=== PATIENT | female | born 2000 | race Hispanic/Latino ===

== ENCOUNTER 2024-07-09 17:34 | Emergency (ER) | payer SELFPAY ==
--- OUTSIDE RECORDS SUMMARY | 2024-07-09 17:36 | XMS REPORT | Continuity of Care Document ---
Author Name Unknown Address [address] [place] [address] [address] [place], [place] [address] [place] [address] Address [address] [facility]. [address] [place] [address] Care Team Providers Care Store Shopper Name Role Phone Unavailable Unavailable Unavailable Payers Payer Name Policy Type Policy Number Effective Date Expirati on Date Source [employer] [id number] 2023 00:00:00 Encounters Start Date/Time End Date/Time Encounter Type Admission Type Attending [facility] Facility Care Department Encounter ID Source 2023-12-17 13:47:32 2023-12-17 14:09:51 Outpatient Elective [facility]OUT MHEOUT [id number] MHEOUT
[2024-07-09] MEDS ORDERED: MORPHINE 4 MG/ML SYR ONE (18:14)
[2024-07-09] MEDS ORDERED: ONDANSETRON 4 MG/2 ML VIAL ONE (18:14)
[2024-07-09] MEDS ORDERED: NA CHLORIDE 0.9% 1,000 ML ONE (18:15)
[2024-07-09 18:42] LABS: Absolute Eosinophils 0.1 K/uL (0-0.5); Absolute Lymphocytes (CBC) 3.4 K/uL (0.7-4.9); Absolute Monocytes 0.5 K/uL (0.1-1.3); Absolute Neutrophil 6.6 K/uL (1.8-8.0); Basophils % 0.2 % (0-1.3); Eosinophils % 0.9 % (0-4.4); Hematocrit 42.4 % (36.0-45.0); Hemoglobin 14.2 g/dL (12.0-15.0); Lymphocytes % 31.6 % (15.3-44.8); MCH 27.2 pg (27.0-35.0); MCHC 33.6 g/dL (32.0-36.0); MCV 80.9 fL (80-100); MPV 8.5 fL (7.6-11.3); Monocytes % 5.1 % (3.3-12.3); Neutrophils % 62.2 % (41.7-73.7); Nucleated Red Blood Cells % 0.1 % (0-0); Platelets 291 thou/uL (152-406); RBC Red Blood Cell Count 5.24 M/uL (3.86-4.86); Red Cell Distribution Width 13.8 % (12.1-15.2)
[2024-07-09 18:49] LABS: Albumin 3.7 g/dL (3.4-5.0); Albumin/Globulin Ratio 0.9 (1.1-1.8); Anion Gap 9.7 mEq/L (5.0-15.0); Bilirubin Total 0.3 mg/dL (0.2-1.0); Globulin 4.3 g/dL (2.3-3.5); Potassium 3.7 mEq/L (3.5-5.1)
[2024-07-09] MEDS ORDERED: droPERidol 5 MG/2 ML VIAL ONE (19:12)
[2024-07-09] MEDS ORDERED: DIPHENHYDRAMINE 50 MG/ML VIAL ONE (19:13)
--- NOTE | 2024-07-09 20:01 | RAD REPORT ---
EXAMINATION: US Transvaginal Study Probe CLINICAL INDICATION: Female 23 years old.[facility] 2 months ago poss torsion/ectopic Bed Name: 18 TECHNIQUE: Real-time ultrasonography of the pelvis was performed transvaginally. Color and spectral D oppler evaluation of the ovaries was performed. COMPARISON: No prior exam. FINDINGS: UTERUS AND CERVIX: The uterus measures 6.2 cm in length. The uterus is normal. No masses seen The end ometrium is normal, 0.7 cm in thickness. RIGHT OVARY: Normal. Ovoid cystic anechoic structure with thin anderson measuring 1.7 x 0.9 x 0.8 cm adj acent to the right ovary. The right ovary measures 2.7 x 1.9 x 1.9 cm cm. Normal color and spectral Doppler evaluation of the right ovary.. LEFT OVARY: Normal The left ovary measures 2.2 x 1.3 x 1.4 cm. Normal color and spectral Doppler evaluation of the left ovary.. FREE FLUID: No free fluid. IMPRESSION: Right parovarian 2.7 cm cystic structure, could represent a simple paraovarian cyst versus focal hydr osalpinx.
--- NOTE | 2024-07-09 20:49 | RAD REPORT ---
EXAMINATION: CT Abdomen Pelvis W Contrast CLINICAL INDICATION: Female, 23 years old. ABD PAIN TECHNIQUE: CT abdomen and pelvis was performed, after the administration of IV contrast, as per [facility] protocol. Axial, sagittal and coronal reconstructions were obtained. One or more of the following dose reduction techniques were used: Automated exposure control, adjustment of the mA and k V according to patient size, and iterative reconstruction. Unless otherwise specified, incidental findings do not require dedicated imaging follow-up. COMPARISON: No prior exam. FINDINGS: LOWER CHEST: The visualized lung bases are clear. LIVER: Normal in size and contour. No focal lesion. BILIARY SYSTEM: No suspicious abnormalities. SPLEEN: Normal size. No focal lesion. PANCREAS: No mass, ductal dilation, or antonio-pancreatic fluid. ADRENALS: Normal; no mass. KIDNEYS: Normal size. Relative slower contrast excretion on the left. Mild cortical heterogeneous enh ancement on the left near the superior pole. Mild left hydronephrosis with parapelvic and periureteric fat stranding. URINARY BLADDER: Dependent 2 mm calculus near the midline, may represent a recently passed stone. GASTROINTESTINAL TRACT: No evidence of free air, significant intra-abdominal free fluid, bowel obstru ction or abscess. APPENDIX: Normal appendix. LYMPH NODES: No lymphadenopathy. MUSCULOSKELETAL: No acute or suspicious osseous abnormality. ADDITIONAL FINDINGS: None. IMPRESSION: Mild left hydronephrosis with mild perinephric and periureteric fat stranding. Dependent 2 mm calculus near the bladder midline, may represent a recently passed stone given its loc ation. Questionable mild cortical heterogeneous enhancement on the left near the superior pole, could repres ent subtle changes of acute pyelonephritis. Please correlate clinically and with inflammatory markers.
[2024-07-09 21:19] LABS: Specific Gravity 1.027 (1.005-1.030); Sqamous Epithelial <5 /HPF (None Seen); Urine Bacteria None Seen /HPF (<20); Urine Bilirubin NEGATIVE (Negative); Urine Blood 2+ (Negative); Urine Clarity Clear (Clear); Urine Color Colorless (Yellow); Urine Crystals Unidentified Few /HPF (None Seen); Urine Culture Reflex Order NOT NEEDED; Urine Glucose NEGATIVE (Negative); Urine Ketones 1+ (Negative); Urine Microscopic Reflex YN ORDER UMIC; Urine Mucus Slight /HPF (None Seen); Urine Nitrite NEGATIVE (Negative); Urine Protein NEGATIVE (Negative); Urine Urobilinogen Normal (Normal); Urine WBC <5 /HPF (<5); Urine Yeast (Budding) Trace /HPF (None Seen)
--- NOTE | 2024-07-09 21:38 | ER ---
Nurse's Notes [facility] Name: Sahara Suarez Age: 23 yrs Sex: Female : 2000 Arrival Date: 07/09/2024 Time: 17:34 Bed 18 Private MD: Diagnosis: Calculus of kidney with calculus of ureter-passed Presentation: 07/09 17:45 Chief complaint: Patient states: Left flank pain that radiates to LLQ, 11/24, me1 "stabbing" with n/v, started about 1 pm. Coronavirus screen: At this time, the client does not indicate any symptoms associated with coronavirus-19. Ebola Screen: No symptoms or risks identified at this time. Initial Sepsis Screen: Does the patient meet any 2 criteria? HR > 90 bpm. Does the patient have a suspected source of infection? No. Patient's initial sepsis screen is negative. Risk Assessment: Do you want to hurt yourself or someone else? Patient reports no desire to harm self or others. Onset of symptoms was July 09, 2024 at 13:00. 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 - Infectious Disease History:: Denies. - Social history:: Smoking status: Patient denies any tobacco usage or history of. Screenin:00 [facility] ED Fall Risk Assessment (Adult) History of falling in the last 3 months, kc6 including since admission No falls in past 3 months (0 pts) Confusion or Disorientation No (0 pts) Intoxicated or Sedated No (0 pts) Impaired Gait No (0 pts) Mobility Assist Device Used No (0 pt) Altered Elimination No (0 pt) Score/Fall Risk Level 0 - 2 = Low Risk Oriented to surroundings. Abuse screen: Denies threats or abuse. Denies injuries from another. Nutritional screening: No deficits noted. Tuberculosis screening: No symptoms or risk factors identified. Assessment: 18:30 General: Appears distressed, uncomfortable, obese, well groomed, well developed, kc6 Behavior is cooperative, appropriate for age, restless. Pain: Complains of pain in right lower quadrant and left lower quadrant Pain does not radiate. Pain currently is 10 out of 10 on a pain scale. Quality of pain is described as sharp, Pain began suddenly, Is continuous, Noted to be grimacing, guarding, moaning, restless. Neuro: Level of Consciousness is awake, alert, obeys commands, Oriented to person, place, time, situation, Appropriate for age. Cardiovascular: Capillary refill < 3 seconds. Respiratory: Airway is patent Trachea midline Respiratory effort is even, unlabored, Respiratory pattern is regular, symmetrical. GI: Abdomen is round non-distended, Bowel sounds present X 4 quads. Abd is soft X 4 quads Abdomen is tender to palpation in abdomen diffusely Reports lower abdominal pain, upper abdominal pain, nausea, vomiting, Patient currently denies diarrhea. : No signs and/or symptoms were reported regarding the genitourinary system. Urine is cloudy. EENT: No signs and/or symptoms were reported regarding the EENT system. Derm: No signs and/or symptoms reported regarding the dermatologic system. Skin is intact, is healthy with good turgor, Skin is dry, Skin is pale, Skin temperature is warm. 19:00 General: Appears in no apparent distress. comfortable, Behavior is calm, cooperative, rg5 appropriate for age. Pain: Complains of pain in abdomen Quality of pain is described as aching. Neuro: Level of Consciousness is awake, alert, obeys commands, Oriented to person, place, time, situation. Respiratory: Airway is patent Trachea midline Respiratory effort is even, unlabored, Respiratory pattern is regular, symmetrical. GI: Abdomen is round non-distended, Reports lower abdominal pain, upper abdominal pain, nausea, vomiting. : No signs and/or symptoms were reported regarding the genitourinary system. EENT: No signs and/or symptoms were reported regarding the EENT system. Derm: Skin is intact, Skin is dry, Skin is normal. Musculoskeletal: Circulation, motion, and sensation intact. Range of motion: intact in all extremities. 20:30 Reassessment: Patient and/or family updated on plan of care and expected duration. Pain rg5 level reassessed. Patient is alert, oriented x 3, equal unlabored respirations, skin warm/dry/pink. Patient states feeling better. Patient states symptoms have improved. 21:47 Reassessment: Patient and/or family updated on plan of care and expected duration. Pain rg5 level reassessed. Patient is alert, oriented x 3, equal unlabored respirations, skin warm/dry/pink. Patient states feeling better. Patient states symptoms have improved. Vital Signs: 17:45 BP 140 / 112; Pulse 97; Resp 18; Temp 98.2; Pulse Ox 100% ; Weight 92.99 kg; Height 5 me1 ft. 4 in. ; Pain 10/10; 18:38 BP 123 / 75; Pulse 105; Resp 19 S; Pulse Ox 100% on R/A; kc6 19:00 BP 125 / 100; Pulse 111; Resp 19; Pulse Ox 100% ; Pain 6/10; rg5 20:40 BP 100 / 61; Pulse 104; Resp 17; Pulse Ox 98% on R/A; Pain 0/10; rg5 21:37 BP 118 / 90; Pulse 100; Resp 18; Pulse Ox 100% ; rg5 17:45 Body Mass Index 35.19 (92.99 kg, 162.56 cm) me1 17:45 Pain Scale: Adult me1 19:00 Pain Scale: Adult rg5 20:40 Pain Scale: Adult rg5 ED Course: 17:35 Patient arrived in ED. cj3 17:36 Manisha Orta PA-C is PHCP. sb4 17:36 Dustin Ocampo MD is Attending Physician. sb4 17:48 Triage completed. me1 17:48 Arm band placed on Patient placed in waiting room. me1 17:55 Katherine Sandoval, PHILIP is Primary Nurse. kc6 18:33 Initial lab(s) drawn, by ut, sent to lab. Missed attempt(s): 20 gauge in right kc6 antecubital area. Inserted saline lock: 20 gauge in left antecubital area, using aseptic technique. Blood collected. Flushed with 10 mL NS. Patient maintains SpO2 saturation greater than 95% on room air. 18:39 Patient has correct armband on for positive identification. Placed in gown. Bed in low kc6 position. Call light in reach. Side rails up X 1. Adult w/ patient. Pulse ox on. NIBP on. Door closed. Noise minimized. Lights dimmed. Warm blanket given. Pillow given. Verbal reassurance given. 18:53 Transvaginal Study (probe) In Process Unspecified. EDMS 19:00 Report given to PHILIP Ulloa. kc6 19:00 No provider procedures requiring assistance completed. rg5 19:37 CT Abd/Pelvis - IV Contrast Only In Process Unspecified. EDMS 21:40 Provided Education on: post er care done. rg5 21:40 IV discontinued, intact, No redness/swelling at site. rg5 Administered Medications: 18:33 Drug: Ondansetron IVP 4 mg IVP once; over 2 minutes Route: IVP; Site: left antecubital; [facility] 19:00 Follow up: Response: No adverse reaction kc6 18:33 Drug: morphine IVP or IV 4 mg IVP once over 4 mins Route: IVP; Infused Over: 4 mins; 6 Site: left antecubital; 19:00 Follow up: Response: No adverse reaction; Pain is unchanged, physician notified; RASS: kc6 Alert and Calm (0) 18:33 Drug: NS 0.9% IV 1000 ml IV at 1 bolus Per protocol; to be given as a bolus over 60 kc6 minutes Route: IV; Rate: 1 bolus; Site: left antecubital; 20:00 Follow up: IV Status: Completed infusion; IV Intake: 1000ml rg5 18:48 CANCELLED (Patient ): hydromorphone1 mg IVP once sb4 19:16 Drug: Droperidol IVP 2.5 mg IVP once Route: IVP; Site: left antecubital; rg5 20:49 Follow up: Response: No adverse reaction rg5 19:16 Drug: diphenhydrAMINE IVP 25 mg IVP once Route: IVP; Site: left antecubital; rg5 20:49 Follow up: Response: No adverse reaction rg5 Medication: 19:00 VIS not applicable for this client. rg5 Intake: 20:00 IV: 1000ml; Total: 1000ml. rg5 Outcome: 21:37 Discharge ordered by . sb4 21:47 Discharged to home ambulatory, rg5 21:47 Condition: stable 21:47 Discharge instructions given to patient, family, 21:49 Patient left the ED. rg5 Signatures: Dispatcher [employer] Katherine Patel RN RN [email or web address] Manisha Orta, PAJonasC PA-C sb4 Ann Douglas, RN RN me1 Kaushal Adrian, RN RN rg5 iLnda Villanueva 3
--- NOTE | 2024-07-09 21:38 | EDPHYS ---
Physician Documentation [facility] Name: Sahara Suarez Age: 23 yrs Sex: Female : 2000 Arrival Date: 07/09/2024 Time: 17:34 Bed 18 Private MD: ED Physician Dustin Ocampo HPI: 07/09 17:53 This 23 yrs old Female presents to ER via Wheelchair with complaints of sb4 Abdominal Pain - LT, Flank Pain - LT, Nausea/Vomiting. 17:53 sudden onset LLQ pain this afternoon with associated left flank pain, nausea, and sb4 vomiting. LMP 2 months ago. no urinary complaints. denies h/o kidney stones. 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 - Infectious Disease History:: Denies. - Social history:: Smoking status: Patient denies any tobacco usage or history of. ROS: 17:53 Constitutional: Negative for fever, chills, and weight loss, sb4 17:53 Abdomen/GI: Positive for abdominal pain, nausea and vomiting, 17:53 All other systems are negative, Exam: 17:53 Head/Face: Normocephalic, atraumatic. Eyes: Extra-ocular motions intact. Periorbital sb4 areas with no swelling, redness, or edema. ENT: Mucous membranes moist. Cardiovascular: Regular rate and rhythm with a normal S1 and S2. Respiratory: No increased work of breathing, no retractions or nasal flaring. Skin: Warm, dry with normal turgor. Normal color with no rashes, no lesions, and no evidence of cellulitis. 17:53 Constitutional: The patient appears alert, awake, in obvious pain, uncomfortable, 17:53 Abdomen/GI: Inspection: abdomen appears normal, Bowel sounds: normal, Palpation: soft, moderate abdominal tenderness, in the left lower quadrant, 17:53 Back: CVA tenderness, is absent, Vital Signs: 17:45 BP 140 / 112; Pulse 97; Resp 18; Temp 98.2; Pulse Ox 100% ; Weight 92.99 kg; Height 5 me1 ft. 4 in. ; Pain 10/10; 18:38 BP 123 / 75; Pulse 105; Resp 19 S; Pulse Ox 100% on R/A; kc6 19:00 BP 125 / 100; Pulse 111; Resp 19; Pulse Ox 100% ; Pain 6/10; rg5 20:40 BP 100 / 61; Pulse 104; Resp 17; Pulse Ox 98% on R/A; Pain 0/10; rg5 21:37 BP 118 / 90; Pulse 100; Resp 18; Pulse Ox 100% ; rg5 17:45 Body Mass Index 35.19 (92.99 kg, 162.56 cm) me1 17:45 Pain Scale: Adult me1 19:00 Pain Scale: Adult rg5 20:40 Pain Scale: Adult rg5 MDM: 17:41 Medical Screening Exam initiated sb4 17:57 Differential diagnosis: Ectopic , non-specific abd pain, Ovarian Torsion, sb4 Pyelonephritis, Ureterolithiasis, urinary tract infection. 21:59 Data reviewed: vital signs, nurses notes, lab test result(s), radiologic studies, and sb4 as a result, I will discharge patient. Counseling: I had a detailed discussion with the patient and/or guardian regarding the historical points, exam findings, and any diagnostic results supporting the discharge/admit diagnosis, lab results, radiology results, the need for outpatient follow up, for definitive care, to return to the emergency department if symptoms worsen or persist or if there are any questions or concerns that arise at home. 07/09 17:53 Order name: CBC with Diff; Complete Time: 18:48 sb4 07/09 17:53 Order name: CMP; Complete Time: 18:50 sb4 07/09 17:53 Order name: Lipase; Complete Time: 18:50 sb4 07/09 17:53 Order name: Test, Serum; Complete Time: 18:46 sb4 07/09 18:50 Order name: UA Rfx Wei Cult if indicated; Complete Time: 21:24 sb4 07/09 17:56 Order name: Transvaginal Study (probe); Complete Time: 20:07 sb4 07/09 18:48 Order name: CT Abd/Pelvis - IV Contrast Only; Complete Time: 20:52 sb4 07/09 17:53 Order name: IV Saline Lock; Complete Time: 18:33 sb4 07/09 17:53 Order name: Labs collected and sent; Complete Time: 18:33 sb4 Administered Medications: 18:33 Drug: Ondansetron IVP 4 mg IVP once; over 2 minutes Route: IVP; Site: left antecubital; 6 19:00 Follow up: Response: No adverse reaction kc6 18:33 Drug: morphine IVP or IV 4 mg IVP once over 4 mins Route: IVP; Infused Over: 4 mins; kc6 Site: left antecubital; 19:00 Follow up: Response: No adverse reaction; Pain is unchanged, physician notified; RASS: [facility] Alert and Calm (0) 18:33 Drug: NS 0.9% IV 1000 ml IV at 1 bolus Per protocol; to be given as a bolus over 60 kc6 minutes Route: IV; Rate: 1 bolus; Site: left antecubital; 20:00 Follow up: IV Status: Completed infusion; IV Intake: 1000ml rg5 18:48 CANCELLED (Patient ): hydromorphone1 mg IVP once sb4 19:16 Drug: Droperidol IVP 2.5 mg IVP once Route: IVP; Site: left antecubital; rg5 20:49 Follow up: Response: No adverse reaction rg5 19:16 Drug: diphenhydrAMINE IVP 25 mg IVP once Route: IVP; Site: left antecubital; rg5 20:49 Follow up: Response: No adverse reaction rg5 Disposition: 07/10 19:24 Co-signature as Attending Physician, Dustin Ocampo MD I agree with the assessment and echo plan of care. Disposition Summary: 07/09/24 21:37 Discharge Ordered Notes: Location: Home sb4 Problem: new sb4 Symptoms: are resolved sb4 Condition: Stable sb4 Diagnosis - Calculus of kidney with calculus of ureter - passed sb4 Followup: sb4 - With: Private Physician - When: As needed - Reason: Recheck today's complaints, Re-evaluation by your physician Discharge Instructions: - Discharge Summary Sheet sb4 - Kidney Stones sb4 Forms: - Patient Portal Instructions sb4 - Leadership Thank You Letter sb4 Signatures: Dispatcher [employer] Dustin Bales MD MD cha Campbell, Kaitlyn, RN RN kc6 Manisha Orta PA-C PAJonasC sb4 Ann Douglas RN RN me1 Kaushal Adrian, RN RN rg5 Corrections: (The following items were deleted from the chart) 07/09 18:48 18:47 HYDROmorphone IVP 1 mg IVP once ordered. sb4 sb4
[2024-07-09 22:00] VITALS: TEMP 98.2
[2024-07-09 22:07] VITALS: BP 118/90; O2SAT 100
== END 2024-07-09 21:49 | disposition home or self-care (01) ==
LOC: ER 17:34
DX: N20.2 Calculus of kidney with calculus of ureter (principal)
CPT/HCPCS: 36415; 74177; 76830; 80053; 81001; 83690; 84703; 85025; 96361; 96374; 96375; 99284; J1200; J1790; J2405; J7030; Q9967